=== PATIENT | male | born 1970 | race African-American/Black ===

== ENCOUNTER 2022-05-06 03:55 | Inpatient (IN) ==
[2022-05-06 11:34] LABS: Basophils # 0.1 10*3/uL (0.0-0.2); Basophils % 0.3 % (0.0-0.8); Eosinophils % 0.1 % (0.00-10.9); Hemoglobin 15.3 GM/DL (14.0-18.0); Immature Granulocytes % 0.7 %; Immature Granulocytes Absolute 0.12 #; Lymphocytes # 1.1 10*3/uL (1.4-4.0); Lymphocytes % 6.5 % (21.2-54.2); Mean Corpuscular HGB Conc 33.3 GM/DL (32-36); Mean Corpuscular Volume 95.4 FL (87-102); Mean Platelet Volume 13.1 FL (9.6-12.0); Monocytes # 0.9 10*3/uL (0.11-0.8); Monocytes % 5.7 % (1.7-12.7); Neutrophils % 86.7 % (38.7-73.9); Platelet Count 159 T/CUMM (130-400); Red Blood Count 4.82 MC/CUMM (3.8-5.5); Red Cell Distribution Width 14.2 % (9.3-17.3); White Blood Count 16.4 T/CUMM (4-12)
[2022-05-06] MEDS ORDERED: CLINDAMYCIN INJ 900 MG/50 ML PREMIX IV STA (11:40)
[2022-05-06 11:53] LABS: Albumin 2.9 G/DL (3.4-5.0); Bilirubin,Total 0.4 MG/DL (0.20-1.00); Calcium 8.6 MG/DL (8.5-10.1); Osmolality,Calculated 266.4 MOS/KG (273-304); Potassium 3.7 MMOL/L (3.5-5.1); Total Protein 7.6 G/DL (6.4-8.2)
[2022-05-06 12:21] LABS: Anisocytosis 1+; Band Neutrophils 17 % (0-10); Lymphocytes 7 % (20-55); Macrocytosis 1+; Platelet Estimate Normal; Total Cells Counted 100
[2022-05-06] MEDS ORDERED: SODIUM CHLORIDE 0.9% 1,000 ML IV STA (12:31)
[2022-05-06] MEDS ORDERED: ONDANSETRON 4 MG/2 ML VIAL IV PRN (12:32)
[2022-05-06] MEDS ORDERED: ceFAZolin 2,000 MG/50 ML DUPLEX IV SCH (13:00)
[2022-05-06] MEDS ORDERED: PNEUMOCOCCAL VACCINE (23 VALENT) 0.5 ML VIAL IM ONE (14:49)
[2022-05-06] MEDS: SODIUM CHLORIDE 0.9% 1,000 ML IV SCH (16:26)
[2022-05-06] MEDS: ENOXAPARIN 40 MG/0.4 ML SYRINGE SUBCUT SCH (23:07)
[2022-05-07] MEDS: SODIUM CHLORIDE 0.9% 1,000 ML IV SCH ×2 (06:13→20:26)
[2022-05-07 07:22] LABS: Basophils # 0.1 10*3/uL (0.0-0.2); Basophils % 0.3 % (0.0-0.8); Eosinophils % 0.2 % (0.00-10.9); Hematocrit 38.9 VOL% (42.0-52.0); Immature Granulocytes % 0.8 %; Immature Granulocytes Absolute 0.15 #; Lymphocytes # 1.2 10*3/uL (1.4-4.0); Lymphocytes % 6.6 % (21.2-54.2); Mean Corpuscular HGB Conc 33.4 GM/DL (32-36); Mean Platelet Volume 13.3 FL (9.6-12.0); Monocytes # 1.6 10*3/uL (0.11-0.8); Monocytes % 8.4 % (1.7-12.7); Neutrophils % 83.7 % (38.7-73.9); Platelet Count 146 T/CUMM (130-400); Red Blood Count 4.14 MC/CUMM (3.8-5.5); Red Cell Distribution Width 14.3 % (9.3-17.3); White Blood Count 18.5 T/CUMM (4-12)
[2022-05-07 07:33] LABS: Bilirubin,Total 0.9 MG/DL (0.20-1.00); Calcium 8.1 MG/DL (8.5-10.1); Osmolality,Calculated 265.2 MOS/KG (273-304); Potassium 3.5 MMOL/L (3.5-5.1); Risk Ratio 1.98; Total Protein 6.2 G/DL (6.4-8.2); VLDL Cholesterol 15.6 MG/DL
[2022-05-07 07:42] LABS: Band Neutrophils 2 % (0-10); Lymphocytes 3 % (20-55); Total Cells Counted 100
[2022-05-07 07:44] LABS: Platelet Estimate Normal
[2022-05-07] MEDS ORDERED: PNEUMOCOCCAL VACCINE (20 VALENT) 0.5 ML SYRINGE IM ONE (09:00)
[2022-05-07] MEDS ORDERED: INFLUENZA VIRUS VACCINE 0.5 ML SYRINGE IM ONE (09:00)
[2022-05-07] MEDS: DILTIAZEM 60 MG TABLET PO SCH ×2 (09:19→20:26)
[2022-05-07] MEDS: PANTOPRAZOLE 40 MG TABLET PO SCH (09:19)
[2022-05-07] MEDS: METOPROLOL TARTRATE 50 MG TABLET PO SCH ×2 (09:19→20:26)
[2022-05-07] MEDS: hydroCHLOROthiazide 25 MG TABLET PO SCH (09:19)
[2022-05-07] MEDS: ACETAMINOPHEN 325 MG TABLET PO PRN (12:45)
[2022-05-07] MEDS: ENOXAPARIN 40 MG/0.4 ML SYRINGE SUBCUT SCH (20:25)
[2022-05-08] MEDS: DILTIAZEM 60 MG TABLET PO SCH ×2 (08:38→20:17)
[2022-05-08] MEDS: hydroCHLOROthiazide 25 MG TABLET PO SCH (08:39)
[2022-05-08] MEDS: METOPROLOL TARTRATE 50 MG TABLET PO SCH ×2 (08:39→20:17)
[2022-05-08] MEDS: PANTOPRAZOLE 40 MG TABLET PO SCH (08:39)
[2022-05-08] MEDS: SODIUM CHLORIDE 0.9% 1,000 ML IV SCH ×2 (09:57→17:28)
[2022-05-08] MEDS: cefTRIAXone 2,000 MG in SODIUM CHLORIDE 0.9% 100 ML IV SCH (12:11)
[2022-05-08] MEDS: VANCOMYCIN INJ 1,750 MG in SODIUM CHLORIDE 0.9% 500 ML IV SCH (13:05)
[2022-05-08] MEDS: ENOXAPARIN 40 MG/0.4 ML SYRINGE SUBCUT SCH (20:17)
[2022-05-09] MEDS: SODIUM CHLORIDE 0.9% 1,000 ML IV SCH ×2 (03:32→10:19)
[2022-05-09 04:33] LABS: Basophils # 0.1 10*3/uL (0.0-0.2); Basophils % 0.5 % (0.0-0.8); Eosinophils # 0.1 10*3/uL (0.0-0.87); Eosinophils % 0.5 % (0.00-10.9); Hematocrit 39.8 VOL% (42.0-52.0); Hemoglobin 13.4 GM/DL (14.0-18.0); Immature Granulocytes Absolute 0.38 #; Lymphocytes # 2.1 10*3/uL (1.4-4.0); Lymphocytes % 11.2 % (21.2-54.2); Mean Corpuscular HGB Conc 33.7 GM/DL (32-36); Mean Platelet Volume 12.8 FL (9.6-12.0); Monocytes # 1.7 10*3/uL (0.11-0.8); Monocytes % 9.2 % (1.7-12.7); Neutrophils % 76.6 % (38.7-73.9); Platelet Count 190 T/CUMM (130-400); Red Blood Count 4.19 MC/CUMM (3.8-5.5); White Blood Count 18.6 T/CUMM (4-12)
[2022-05-09 05:04] LABS: Calcium 7.9 MG/DL (8.5-10.1); Osmolality,Calculated 267.1 MOS/KG (273-304); Potassium 3.1 MMOL/L (3.5-5.1)
[2022-05-09] MEDS: cefTRIAXone 2,000 MG in SODIUM CHLORIDE 0.9% 100 ML IV SCH (08:36)
[2022-05-09] MEDS: CHOLECALCIFEROL 1,000 UNIT TABLET PO SCH (08:37)
[2022-05-09] MEDS: MULTIVITAMIN (BEROCCA) TABLET PO SCH (08:37)
[2022-05-09] MEDS: METOPROLOL TARTRATE 50 MG TABLET PO SCH (08:37)
[2022-05-09] MEDS: PANTOPRAZOLE 40 MG TABLET PO SCH (08:37)
[2022-05-09] MEDS: hydroCHLOROthiazide 25 MG TABLET PO SCH (08:37)
[2022-05-09] MEDS: DILTIAZEM 60 MG TABLET PO SCH ×2 (08:37→20:54)
[2022-05-09] MEDS ORDERED: ERGOCALCIFEROL 50,000 UNIT CAPSULE PO ONE (12:07)
[2022-05-09] MEDS: MAGNESIUM OXIDE 400 MG TABLET PO SCH ×2 (12:27→20:55)
[2022-05-09] MEDS: POTASSIUM CHLORIDE 20 MEQ TABLET PO SCH ×2 (12:27→20:54)
[2022-05-09] MEDS: VANCOMYCIN INJ 1,750 MG in SODIUM CHLORIDE 0.9% 500 ML IV SCH (12:27)
[2022-05-09] MEDS: ENOXAPARIN 40 MG/0.4 ML SYRINGE SUBCUT SCH (20:54)
[2022-05-10] MEDS: SODIUM CHLORIDE 0.9% 1,000 ML IV SCH ×2 (01:56→12:03)
[2022-05-10 04:38] LABS: Basophils # 0.1 10*3/uL (0.0-0.2); Basophils % 0.7 % (0.0-0.8); Eosinophils # 0.2 10*3/uL (0.0-0.87); Eosinophils % 1.3 % (0.00-10.9); Hematocrit 39.6 VOL% (42.0-52.0); Hemoglobin 13.5 GM/DL (14.0-18.0); Immature Granulocytes % 2.6 %; Immature Granulocytes Absolute 0.37 #; Lymphocytes # 2.3 10*3/uL (1.4-4.0); Mean Corpuscular HGB Conc 34.1 GM/DL (32-36); Mean Corpuscular Volume 93.2 FL (87-102); Mean Platelet Volume 12.6 FL (9.6-12.0); Monocytes # 1.4 10*3/uL (0.11-0.8); Neutrophils % 69.4 % (38.7-73.9); Platelet Count 260 T/CUMM (130-400); Red Blood Count 4.25 MC/CUMM (3.8-5.5); Red Cell Distribution Width 14.1 % (9.3-17.3); White Blood Count 14.2 T/CUMM (4-12)
[2022-05-10 05:04] LABS: Calcium 8.7 MG/DL (8.5-10.1); Potassium 3.3 MMOL/L (3.5-5.1)
[2022-05-10 07:01] LABS: Atypical Lymphocytes Few; Band Neutrophils 10 % (0-10); Eosinophils 2 % (0-10); Lymphocytes 20 % (20-55); Metamyelocytes 1 %; Platelet Estimate Normal; Total Cells Counted 100
[2022-05-10 07:02] LABS: Anisocytosis Slight
[2022-05-10] MEDS: cefTRIAXone 2,000 MG in SODIUM CHLORIDE 0.9% 100 ML IV SCH (08:01)
[2022-05-10] MEDS: POTASSIUM CHLORIDE 20 MEQ TABLET PO SCH ×2 (08:02→20:19)
[2022-05-10] MEDS: PANTOPRAZOLE 40 MG TABLET PO SCH (08:02)
[2022-05-10] MEDS: CHOLECALCIFEROL 1,000 UNIT TABLET PO SCH (08:02)
[2022-05-10] MEDS: MULTIVITAMIN (BEROCCA) TABLET PO SCH (08:02)
[2022-05-10] MEDS: MAGNESIUM OXIDE 400 MG TABLET PO SCH ×2 (08:03→20:20)
[2022-05-10] MEDS ORDERED: DILTIAZEM CD 120 MG CAPSULE PO SCH (09:00)
[2022-05-10] MEDS ORDERED: ERGOCALCIFEROL 50,000 UNIT CAPSULE PO ONE (10:30)
[2022-05-10] MEDS: VANCOMYCIN INJ 1,750 MG in SODIUM CHLORIDE 0.9% 500 ML IV SCH (12:55)
[2022-05-10] MEDS: DILTIAZEM 60 MG TABLET PO SCH ×2 (15:56→20:19)
[2022-05-10] MEDS: ENOXAPARIN 40 MG/0.4 ML SYRINGE SUBCUT SCH (20:19)
[2022-05-11] MEDS: SODIUM CHLORIDE 0.9% 1,000 ML IV SCH ×2 (03:34→12:28)
[2022-05-11 04:32] LABS: Basophils # 0.1 10*3/uL (0.0-0.2); Basophils % 0.9 % (0.0-0.8); Eosinophils # 0.2 10*3/uL (0.0-0.87); Eosinophils % 1.7 % (0.00-10.9); Hematocrit 38.6 VOL% (42.0-52.0); Hemoglobin 12.7 GM/DL (14.0-18.0); Immature Granulocytes % 3.3 %; Immature Granulocytes Absolute 0.43 #; Lymphocytes % 15.3 % (21.2-54.2); Mean Corpuscular HGB Conc 32.9 GM/DL (32-36); Mean Corpuscular Volume 95.5 FL (87-102); Monocytes # 1.4 10*3/uL (0.11-0.8); Monocytes % 10.3 % (1.7-12.7); Neutrophils % 68.5 % (38.7-73.9); Red Blood Count 4.04 MC/CUMM (3.8-5.5); Red Cell Distribution Width 13.9 % (9.3-17.3); White Blood Count 13.1 T/CUMM (4-12)
[2022-05-11 04:43] LABS: Mean Platelet Volume 11.6 FL (9.6-12.0); Platelet Count 349 T/CUMM (130-400)
[2022-05-11 04:44] LABS: Calcium 8.4 MG/DL (8.5-10.1); Osmolality,Calculated 272.7 MOS/KG (273-304); Potassium 3.7 MMOL/L (3.5-5.1)
[2022-05-11 04:51] LABS: Band Neutrophils 2 % (0-10); Eosinophils 1 % (0-10); Lymphocytes 16 % (20-55); Nucleated Red Blood Cells 2 /100 WBC (0-5); Total Cells Counted 100
[2022-05-11 04:52] LABS: Anisocytosis Slight; Burr Cells Few; Macrocytosis Slight; Platelet Estimate Normal
[2022-05-11] MEDS: cefTRIAXone 2,000 MG in SODIUM CHLORIDE 0.9% 100 ML IV SCH (08:24)
[2022-05-11] MEDS: MAGNESIUM OXIDE 400 MG TABLET PO SCH ×2 (08:25→20:52)
[2022-05-11] MEDS: CHOLECALCIFEROL 1,000 UNIT TABLET PO SCH (08:25)
[2022-05-11] MEDS: POTASSIUM CHLORIDE 20 MEQ TABLET PO SCH (08:26)
[2022-05-11] MEDS: MULTIVITAMIN (BEROCCA) TABLET PO SCH (08:26)
[2022-05-11] MEDS: PANTOPRAZOLE 40 MG TABLET PO SCH (08:26)
[2022-05-11] MEDS: DILTIAZEM 60 MG TABLET PO SCH ×3 (08:26→20:55)
[2022-05-11] MEDS ORDERED: ERGOCALCIFEROL 50,000 UNIT CAPSULE PO ONE (10:52)
[2022-05-11] MEDS: VANCOMYCIN INJ 1,750 MG in SODIUM CHLORIDE 0.9% 500 ML IV SCH (13:15)
[2022-05-11] MEDS: POLYETHYLENE GLYCOL POWDER 17 GM PACK PO SCH (17:38)
[2022-05-11] MEDS: ENOXAPARIN 40 MG/0.4 ML SYRINGE SUBCUT SCH (20:52)
[2022-05-12] MEDS: VANCOMYCIN INJ 1,750 MG in SODIUM CHLORIDE 0.9% 500 ML IV SCH ×2 (00:58→12:08)
[2022-05-12] MEDS: ACETAMINOPHEN 325 MG TABLET PO PRN (01:56)
[2022-05-12 04:58] LABS: Basophils # 0.1 10*3/uL (0.0-0.2); Basophils % 0.9 % (0.0-0.8); Eosinophils # 0.3 10*3/uL (0.0-0.87); Eosinophils % 2.1 % (0.00-10.9); Hematocrit 38.4 VOL% (42.0-52.0); Hemoglobin 12.9 GM/DL (14.0-18.0); Immature Granulocytes % 3.4 %; Immature Granulocytes Absolute 0.41 #; Lymphocytes # 1.9 10*3/uL (1.4-4.0); Lymphocytes % 15.3 % (21.2-54.2); Mean Corpuscular HGB Conc 33.6 GM/DL (32-36); Mean Corpuscular Volume 94.3 FL (87-102); Mean Platelet Volume 11.6 FL (9.6-12.0); Monocytes # 1.1 10*3/uL (0.11-0.8); Monocytes % 9.3 % (1.7-12.7); Platelet Count 390 T/CUMM (130-400); Red Blood Count 4.07 MC/CUMM (3.8-5.5); Red Cell Distribution Width 13.9 % (9.3-17.3); White Blood Count 12.2 T/CUMM (4-12)
[2022-05-12 05:29] LABS: Calcium 8.9 MG/DL (8.5-10.1); Osmolality,Calculated 272.7 MOS/KG (273-304); Potassium 3.8 MMOL/L (3.5-5.1)
[2022-05-12] MEDS: SODIUM CHLORIDE 0.9% 1,000 ML IV SCH (05:29)
[2022-05-12] MEDS: DILTIAZEM 60 MG TABLET PO SCH ×3 (08:37→20:10)
[2022-05-12] MEDS: POLYETHYLENE GLYCOL POWDER 17 GM PACK PO SCH (08:37)
[2022-05-12] MEDS: MAGNESIUM OXIDE 400 MG TABLET PO SCH ×2 (08:38→20:09)
[2022-05-12] MEDS: CHOLECALCIFEROL 1,000 UNIT TABLET PO SCH (08:38)
[2022-05-12] MEDS: cefTRIAXone 2,000 MG in SODIUM CHLORIDE 0.9% 100 ML IV SCH (08:38)
[2022-05-12] MEDS: MULTIVITAMIN (BEROCCA) TABLET PO SCH (08:38)
[2022-05-12] MEDS: PANTOPRAZOLE 40 MG TABLET PO SCH (08:38)
[2022-05-12] MEDS: ENOXAPARIN 40 MG/0.4 ML SYRINGE SUBCUT SCH (20:10)
[2022-05-12] MEDS: MOISTURIZING CREAM (EUCERIN) 106 GM JAR TOP SCH (20:10)
[2022-05-13] MEDS: VANCOMYCIN INJ 1,750 MG in SODIUM CHLORIDE 0.9% 500 ML IV SCH ×2 (02:00→12:34)
[2022-05-13 04:44] LABS: Basophils # 0.1 10*3/uL (0.0-0.2); Basophils % 0.8 % (0.0-0.8); Eosinophils # 0.3 10*3/uL (0.0-0.87); Eosinophils % 3.2 % (0.00-10.9); Hematocrit 40.4 VOL% (42.0-52.0); Hemoglobin 13.1 GM/DL (14.0-18.0); Immature Granulocytes % 4.1 %; Immature Granulocytes Absolute 0.44 #; Mean Corpuscular HGB Conc 32.4 GM/DL (32-36); Mean Corpuscular Volume 96.2 FL (87-102); Mean Platelet Volume 11.4 FL (9.6-12.0); Monocytes # 1.1 10*3/uL (0.11-0.8); Monocytes % 10.7 % (1.7-12.7); Neutrophils % 62.2 % (38.7-73.9); Platelet Count 439 T/CUMM (130-400); White Blood Count 10.6 T/CUMM (4-12)
[2022-05-13 05:07] LABS: Calcium 8.9 MG/DL (8.5-10.1); Potassium 3.7 MMOL/L (3.5-5.1)
[2022-05-13 05:23] LABS: Calcium 8.9 MG/DL (8.5-10.1); Osmolality,Calculated 269.8 MOS/KG (273-304); Potassium 4.5 MMOL/L (3.5-5.1)
[2022-05-13] MEDS: DILTIAZEM 60 MG TABLET PO SCH ×3 (08:51→20:24)
[2022-05-13] MEDS: POLYETHYLENE GLYCOL POWDER 17 GM PACK PO SCH (08:51)
[2022-05-13] MEDS: MULTIVITAMIN (BEROCCA) TABLET PO SCH (08:51)
[2022-05-13] MEDS: CHOLECALCIFEROL 1,000 UNIT TABLET PO SCH (08:51)
[2022-05-13] MEDS: PANTOPRAZOLE 40 MG TABLET PO SCH (08:51)
[2022-05-13] MEDS: MAGNESIUM OXIDE 400 MG TABLET PO SCH ×2 (08:51→20:25)
[2022-05-13] MEDS: cefTRIAXone 2,000 MG in SODIUM CHLORIDE 0.9% 100 ML IV SCH (08:51)
[2022-05-13] MEDS: MOISTURIZING CREAM (EUCERIN) 106 GM JAR TOP SCH ×2 (12:34→20:24)
[2022-05-13] MEDS: ENOXAPARIN 40 MG/0.4 ML SYRINGE SUBCUT SCH (20:24)
[2022-05-13] MEDS: predniSONE 20 MG TABLET PO SCH (20:25)
[2022-05-14] MEDS: VANCOMYCIN INJ 1,750 MG in SODIUM CHLORIDE 0.9% 500 ML IV SCH ×2 (00:33→14:03)
[2022-05-14 05:21] LABS: Basophils # 0.1 10*3/uL (0.0-0.2); Basophils % 0.5 % (0.0-0.8); Eosinophils % 0.1 % (0.00-10.9); Hematocrit 41.6 VOL% (42.0-52.0); Hemoglobin 13.8 GM/DL (14.0-18.0); Immature Granulocytes % 2.4 %; Immature Granulocytes Absolute 0.27 #; Lymphocytes # 1.1 10*3/uL (1.4-4.0); Lymphocytes % 9.2 % (21.2-54.2); Mean Corpuscular HGB Conc 33.2 GM/DL (32-36); Mean Platelet Volume 11.4 FL (9.6-12.0); Monocytes # 0.4 10*3/uL (0.11-0.8); Monocytes % 3.7 % (1.7-12.7); Neutrophils % 84.1 % (38.7-73.9); Platelet Count 501 T/CUMM (130-400); Red Blood Count 4.38 MC/CUMM (3.8-5.5); Red Cell Distribution Width 13.7 % (9.3-17.3); White Blood Count 11.5 T/CUMM (4-12)
[2022-05-14 05:49] LABS: Calcium 9.1 MG/DL (8.5-10.1); Potassium 4.5 MMOL/L (3.5-5.1)
[2022-05-14] MEDS: DILTIAZEM 60 MG TABLET PO SCH ×3 (08:23→21:13)
[2022-05-14] MEDS: predniSONE 20 MG TABLET PO SCH ×2 (08:23→21:13)
[2022-05-14] MEDS: MULTIVITAMIN (BEROCCA) TABLET PO SCH (08:23)
[2022-05-14] MEDS: MAGNESIUM OXIDE 400 MG TABLET PO SCH ×2 (08:24→21:13)
[2022-05-14] MEDS: POLYETHYLENE GLYCOL POWDER 17 GM PACK PO SCH (08:24)
[2022-05-14] MEDS: cefTRIAXone 2,000 MG in SODIUM CHLORIDE 0.9% 100 ML IV SCH (08:24)
[2022-05-14] MEDS: PANTOPRAZOLE 40 MG TABLET PO SCH (08:24)
[2022-05-14] MEDS: CHOLECALCIFEROL 1,000 UNIT TABLET PO SCH (08:24)
[2022-05-14] MEDS: MOISTURIZING CREAM (EUCERIN) 106 GM JAR TOP SCH ×2 (09:20→21:15)
[2022-05-14] MEDS: ENOXAPARIN 40 MG/0.4 ML SYRINGE SUBCUT SCH (21:14)
[2022-05-15] MEDS: VANCOMYCIN INJ 1,750 MG in SODIUM CHLORIDE 0.9% 500 ML IV SCH ×2 (00:40→13:54)
[2022-05-15 05:02] LABS: Basophils % 0.3 % (0.0-0.8); Eosinophils % 0.1 % (0.00-10.9); Hematocrit 39.1 VOL% (42.0-52.0); Hemoglobin 12.9 GM/DL (14.0-18.0); Immature Granulocytes % 1.7 %; Lymphocytes # 1.2 10*3/uL (1.4-4.0); Lymphocytes % 10.3 % (21.2-54.2); Mean Corpuscular Volume 95.1 FL (87-102); Mean Platelet Volume 10.9 FL (9.6-12.0); Monocytes # 0.5 10*3/uL (0.11-0.8); Monocytes % 4.5 % (1.7-12.7); Neutrophils % 83.1 % (38.7-73.9); Platelet Count 529 T/CUMM (130-400); Red Blood Count 4.11 MC/CUMM (3.8-5.5); Red Cell Distribution Width 13.8 % (9.3-17.3); White Blood Count 11.9 T/CUMM (4-12)
[2022-05-15 05:25] LABS: Calcium 9.1 MG/DL (8.5-10.1); Osmolality,Calculated 275.8 MOS/KG (273-304); Potassium 4.4 MMOL/L (3.5-5.1)
[2022-05-15] MEDS: MULTIVITAMIN (BEROCCA) TABLET PO SCH (08:47)
[2022-05-15] MEDS: DILTIAZEM 60 MG TABLET PO SCH (08:47)
[2022-05-15] MEDS: MAGNESIUM OXIDE 400 MG TABLET PO SCH ×2 (08:47→21:27)
[2022-05-15] MEDS: PANTOPRAZOLE 40 MG TABLET PO SCH (08:47)
[2022-05-15] MEDS: CHOLECALCIFEROL 1,000 UNIT TABLET PO SCH (08:47)
[2022-05-15] MEDS: MOISTURIZING CREAM (EUCERIN) 106 GM JAR TOP SCH ×2 (08:47→21:27)
[2022-05-15] MEDS: predniSONE 20 MG TABLET PO SCH ×2 (08:47→21:20)
[2022-05-15] MEDS: cefTRIAXone 2,000 MG in SODIUM CHLORIDE 0.9% 100 ML IV SCH (08:48)
[2022-05-15] MEDS: POLYETHYLENE GLYCOL POWDER 17 GM PACK PO SCH (08:48)
[2022-05-15] MEDS: DILTIAZEM CD 180 MG CAPSULE PO SCH (21:21)
[2022-05-15] MEDS: ENOXAPARIN 40 MG/0.4 ML SYRINGE SUBCUT SCH (21:26)
[2022-05-16] MEDS: VANCOMYCIN INJ 1,750 MG in SODIUM CHLORIDE 0.9% 500 ML IV SCH ×2 (01:50→14:49)
[2022-05-16 06:12] LABS: Basophils % 0.2 % (0.0-0.8); Hematocrit 38.9 VOL% (42.0-52.0); Hemoglobin 12.6 GM/DL (14.0-18.0); Immature Granulocytes % 1.4 %; Immature Granulocytes Absolute 0.14 #; Lymphocytes # 1.6 10*3/uL (1.4-4.0); Lymphocytes % 16.1 % (21.2-54.2); Mean Corpuscular HGB Conc 32.4 GM/DL (32-36); Mean Corpuscular Volume 95.6 FL (87-102); Mean Platelet Volume 10.7 FL (9.6-12.0); Monocytes # 0.8 10*3/uL (0.11-0.8); Neutrophils % 74.3 % (38.7-73.9); Platelet Count 589 T/CUMM (130-400); Red Blood Count 4.07 MC/CUMM (3.8-5.5); White Blood Count 10.1 T/CUMM (4-12)
[2022-05-16 06:24] LABS: Calcium 9.2 MG/DL (8.5-10.1); Osmolality,Calculated 278.5 MOS/KG (273-304); Potassium 4.4 MMOL/L (3.5-5.1)
[2022-05-16 06:49] LABS: Eosinophils 2 % (0-10); Hypochromia Slight; Lymphocytes 24 % (20-55); Microcytosis Slight; Platelet Estimate Adequate; Total Cells Counted 100
[2022-05-16] MEDS: PANTOPRAZOLE 40 MG TABLET PO SCH (09:48)
[2022-05-16] MEDS: predniSONE 20 MG TABLET PO SCH (09:48)
[2022-05-16] MEDS: MULTIVITAMIN (BEROCCA) TABLET PO SCH (09:48)
[2022-05-16] MEDS: MAGNESIUM OXIDE 400 MG TABLET PO SCH ×2 (09:48→20:58)
[2022-05-16] MEDS: CHOLECALCIFEROL 1,000 UNIT TABLET PO SCH (09:48)
[2022-05-16] MEDS: POLYETHYLENE GLYCOL POWDER 17 GM PACK PO SCH (09:49)
[2022-05-16] MEDS: MOISTURIZING CREAM (EUCERIN) 106 GM JAR TOP SCH ×2 (09:49→20:58)
[2022-05-16] MEDS: DILTIAZEM CD 180 MG CAPSULE PO SCH (20:56)
[2022-05-16] MEDS: ENOXAPARIN 40 MG/0.4 ML SYRINGE SUBCUT SCH (20:58)
[2022-05-17] MEDS: VANCOMYCIN INJ 1,750 MG in SODIUM CHLORIDE 0.9% 500 ML IV SCH ×2 (00:42→14:01)
[2022-05-17 05:49] LABS: Basophils # 0.1 10*3/uL (0.0-0.2); Basophils % 0.8 % (0.0-0.8); Eosinophils # 0.1 10*3/uL (0.0-0.87); Eosinophils % 1.1 % (0.00-10.9); Hematocrit 38.4 VOL% (42.0-52.0); Hemoglobin 12.7 GM/DL (14.0-18.0); Immature Granulocytes % 1.5 %; Immature Granulocytes Absolute 0.15 #; Lymphocytes # 3.3 10*3/uL (1.4-4.0); Lymphocytes % 33.8 % (21.2-54.2); Mean Corpuscular HGB Conc 33.1 GM/DL (32-36); Mean Platelet Volume 10.8 FL (9.6-12.0); Monocytes # 0.9 10*3/uL (0.11-0.8); Monocytes % 9.6 % (1.7-12.7); Neutrophils % 53.2 % (38.7-73.9); Platelet Count 590 T/CUMM (130-400); Red Blood Count 4.04 MC/CUMM (3.8-5.5); Red Cell Distribution Width 13.7 % (9.3-17.3); White Blood Count 9.8 T/CUMM (4-12)
[2022-05-17 06:23] LABS: Osmolality,Calculated 272.8 MOS/KG (273-304); Potassium 3.9 MMOL/L (3.5-5.1)
[2022-05-17] MEDS: MULTIVITAMIN (BEROCCA) TABLET PO SCH (09:34)
[2022-05-17] MEDS: ZINC GLUCONATE 50 MG TABLET PO SCH (09:34)
[2022-05-17] MEDS: predniSONE 20 MG TABLET PO SCH (09:35)
[2022-05-17] MEDS: CHOLECALCIFEROL 1,000 UNIT TABLET PO SCH (09:35)
[2022-05-17] MEDS: MAGNESIUM OXIDE 400 MG TABLET PO SCH ×2 (09:35→21:10)
[2022-05-17] MEDS: PANTOPRAZOLE 40 MG TABLET PO SCH (09:35)
[2022-05-17] MEDS: POLYETHYLENE GLYCOL POWDER 17 GM PACK PO SCH (09:36)
[2022-05-17] MEDS: MOISTURIZING CREAM (EUCERIN) 106 GM JAR TOP SCH ×2 (09:36→21:09)
[2022-05-17] MEDS ORDERED: lisinopriL 10 MG TABLET PO SCH (16:30)
[2022-05-17] MEDS: TRIAMCINOLONE 0.1% CREAM 15 GM TUBE TOP SCH (21:09)
[2022-05-17] MEDS: ENOXAPARIN 40 MG/0.4 ML SYRINGE SUBCUT SCH (21:10)
[2022-05-17] MEDS: DILTIAZEM CD 180 MG CAPSULE PO SCH (21:10)
[2022-05-18] MEDS: VANCOMYCIN INJ 1,750 MG in SODIUM CHLORIDE 0.9% 500 ML IV SCH ×2 (02:17→13:55)
[2022-05-18 05:05] LABS: Basophils # 0.1 10*3/uL (0.0-0.2); Basophils % 0.8 % (0.0-0.8); Eosinophils # 0.1 10*3/uL (0.0-0.87); Eosinophils % 1.3 % (0.00-10.9); Hematocrit 37.1 VOL% (42.0-52.0); Hemoglobin 12.3 GM/DL (14.0-18.0); Immature Granulocytes % 1.6 %; Immature Granulocytes Absolute 0.15 #; Lymphocytes % 31.6 % (21.2-54.2); Mean Corpuscular HGB Conc 33.2 GM/DL (32-36); Mean Corpuscular Volume 95.1 FL (87-102); Monocytes % 10.3 % (1.7-12.7); Neutrophils % 54.4 % (38.7-73.9); Platelet Count 557 T/CUMM (130-400); Red Cell Distribution Width 13.7 % (9.3-17.3); White Blood Count 9.4 T/CUMM (4-12)
[2022-05-18 05:31] LABS: Calcium 8.7 MG/DL (8.5-10.1); Osmolality,Calculated 282.3 MOS/KG (273-304); Potassium 3.5 MMOL/L (3.5-5.1)
[2022-05-18] MEDS: MAGNESIUM OXIDE 400 MG TABLET PO SCH ×2 (08:30→22:13)
[2022-05-18] MEDS: MOISTURIZING CREAM (EUCERIN) 106 GM JAR TOP SCH ×2 (08:30→22:14)
[2022-05-18] MEDS: TRIAMCINOLONE 0.1% CREAM 15 GM TUBE TOP SCH (08:30)
[2022-05-18] MEDS: MULTIVITAMIN (BEROCCA) TABLET PO SCH (08:30)
[2022-05-18] MEDS: ZINC GLUCONATE 50 MG TABLET PO SCH (08:31)
[2022-05-18] MEDS: PANTOPRAZOLE 40 MG TABLET PO SCH (08:31)
[2022-05-18] MEDS: predniSONE 20 MG TABLET PO SCH (08:31)
[2022-05-18] MEDS: CHOLECALCIFEROL 1,000 UNIT TABLET PO SCH (08:31)
[2022-05-18] MEDS: POLYETHYLENE GLYCOL POWDER 17 GM PACK PO SCH (08:32)
[2022-05-18] MEDS ORDERED: POTASSIUM CHLORIDE 20 MEQ TABLET PO ONE (11:08)
[2022-05-18] MEDS ORDERED: DILTIAZEM CD 240 MG CAPSULE PO SCH (21:00)
[2022-05-18] MEDS: ENOXAPARIN 40 MG/0.4 ML SYRINGE SUBCUT SCH (22:14)
[2022-05-18] MEDS: TRIAMCINOLONE 0.1% CREAM 80 GM TUBE TOP SCH (22:14)
[2022-05-19] MEDS ORDERED: hydrALAZINE 20 MG/1 ML VIAL IV PRN (00:51)
[2022-05-19] MEDS: VANCOMYCIN INJ 1,750 MG in SODIUM CHLORIDE 0.9% 500 ML IV SCH (01:41)
[2022-05-19 05:11] LABS: Basophils # 0.1 10*3/uL (0.0-0.2); Basophils % 0.7 % (0.0-0.8); Eosinophils # 0.1 10*3/uL (0.0-0.87); Eosinophils % 1.2 % (0.00-10.9); Hematocrit 38.4 VOL% (42.0-52.0); Hemoglobin 12.6 GM/DL (14.0-18.0); Immature Granulocytes % 1.2 %; Immature Granulocytes Absolute 0.12 #; Lymphocytes # 3.2 10*3/uL (1.4-4.0); Lymphocytes % 32.4 % (21.2-54.2); Mean Corpuscular HGB Conc 32.8 GM/DL (32-36); Mean Corpuscular Volume 95.5 FL (87-102); Mean Platelet Volume 11.6 FL (9.6-12.0); Monocytes # 0.7 10*3/uL (0.11-0.8); Monocytes % 6.9 % (1.7-12.7); Neutrophils % 57.6 % (38.7-73.9); Platelet Count 512 T/CUMM (130-400); Red Blood Count 4.02 MC/CUMM (3.8-5.5); Red Cell Distribution Width 13.6 % (9.3-17.3); White Blood Count 9.9 T/CUMM (4-12)
[2022-05-19 05:26] LABS: Osmolality,Calculated 276.5 MOS/KG (273-304); Potassium 3.6 MMOL/L (3.5-5.1)
[2022-05-19] MEDS: MULTIVITAMIN (BEROCCA) TABLET PO SCH (08:41)
[2022-05-19] MEDS: ZINC GLUCONATE 50 MG TABLET PO SCH (08:41)
[2022-05-19] MEDS: predniSONE 20 MG TABLET PO SCH (08:41)
[2022-05-19] MEDS: CHOLECALCIFEROL 1,000 UNIT TABLET PO SCH (08:41)
[2022-05-19] MEDS: PANTOPRAZOLE 40 MG TABLET PO SCH (08:42)
[2022-05-19] MEDS: MAGNESIUM OXIDE 400 MG TABLET PO SCH (08:42)
[2022-05-19] MEDS: MOISTURIZING CREAM (EUCERIN) 106 GM JAR TOP SCH (08:43)
[2022-05-19] MEDS: TRIAMCINOLONE 0.1% CREAM 80 GM TUBE TOP SCH (08:43)
[2022-05-19] MEDS: POLYETHYLENE GLYCOL POWDER 17 GM PACK PO SCH (08:44)
[2022-05-19 12:19] VITALS: BP 145/89
== END 2022-05-19 12:55 | disposition home or self-care (01) | DRG 603 ==
LOC: N.ED 03:55 → N.EDINP 03:55 → SUATTDRO 12:32 → N.EDINP 16:52 → N.2W 16:58 → SUATTDRO 05-07 08:40 → N.2E 05-07 16:09
PROVIDERS: ADMIT Family Medicine; ATTEND Hospitalist